=== PATIENT | female | born 1960 | race Caucasian/White ===

== ENCOUNTER 2024-01-27 12:30 | Outpatient (CLI) | payer OTHER | END 2024-01-27 23:59 | disposition home or self-care (01) | LOC: MRI 12:30 | PROVIDERS: ATTEND Podiatrist Foot & Ankle Surgery | DX: S92.002A Unspecified fracture of left calcaneus, initial encounter for closed fracture (principal); M79.672 Pain in left foot; M25.472 Effusion, left ankle; X58.XXXA Exposure to other specified factors, initial encounter; Y93.89 Activity, other specified; Y92.89 Other specified places as the place of occurrence of the external cause; Y99.8 Other external cause status | CPT/HCPCS: 73721 ==